=== PATIENT | female | born 1955 | race Caucasian/White ===

== ENCOUNTER → 2018-06-13 | Outpatient (CLI) | payer OTHER ==
--- NOTE | 2018-06-18 08:12 | MM ---
Reason for exam: additional evaluation requested from prior study. Last mammogram was performed 2 years and 1 month ago. History: Patient is postmenopausal. Physical Findings: Nurse did not find any significant physical abnormalities on exam. MG Diagnostic Mammo w CAD LUAN Bilateral CC and MLO view(s) were taken. Prior study comparison: May 11, 2016, mammogram, performed at [facility]. May 01, 2016, mammogram, performed at [facility]. November 23, 2014, mammogram, performed at [facility]. The breast tissue is heterogeneously dense. This may lower the sensitivity of mammography. No significant new findings when compared with previous films. These results were verbally communicated with the patient and result sheet given to the patient on 06/17/18. ASSESSMENT: Benign, BI-RAD 2 RECOMMENDATION: Routine screening mammogram of both breasts in 1 year.
== END ==
LOC: RADMAMWWP 07:25
PROVIDERS: ATTEND Internal Medicine
DX: R92.8 Other abnormal and inconclusive findings on diagnostic imaging of breast (principal)
CPT/HCPCS: 77066

== ENCOUNTER → 2020-02-04 | Outpatient (CLI) | payer OTHER ==
--- NOTE | 2020-02-05 09:09 | MM ---
Reason for exam: screening (asymptomatic). Last mammogram was performed 1 year and 8 months ago. History: Patient is postmenopausal. Took hormonal contraceptives for 7 years beginning at age 17. Physical Findings: A clinical breast exam by your physician is recommended on an annual basis and results should be correlated with mammographic findings. MG Screening Mammo w CAD Bilateral CC and MLO view(s) were taken. Prior study comparison: June 13, 2018, bilateral MG diagnostic mammo w CAD LUAN. May 11, 2016, mammogram, performed at [facility]. The breast tissue is heterogeneously dense. This may lower the sensitivity of mammography. Focal asymmetry inner upper posterior third position right breast. ASSESSMENT: Incomplete: need additional imaging evaluation, BI-RAD 0 RECOMMENDATION: Special view mammogram of the right breast. If lesion persists on supplemental views, image directed ultrasound is recommended. [facility] will attempt to contact patient to return for supplemental views and ultrasound if indicated.
== END | disposition home or self-care (01) ==
LOC: RADMAMWWP 07:43
PROVIDERS: ATTEND Internal Medicine
DX: Z12.31 Encounter for screening mammogram for malignant neoplasm of breast (principal)
CPT/HCPCS: 77067

== ENCOUNTER → 2021-08-28 | Outpatient (CLI) | payer OTHER ==
--- NOTE | 2021-08-29 13:49 | BD ---
EXAMINATION TYPE: Axial Bone Density DATE OF EXAM: 08/28/2021 COMPARISON: NONE CLINICAL HISTORY: Z13.820 encounter for osteoporosis screening, Z78 Height: 5 FT 3 1/2 IN Weight: 204 FRAX RISK QUESTIONS: Alcohol (3 or more units per day): NO Family History (Parent hip fracture): NO Glucocorticoids (More than 3mos): NO (Ex: prednisone, prednisolone, methylprednisolone, dexamethasone, and hydrocortisone). History of Fracture in Adulthood: NO Secondary Osteoporosis: 1. Type 1 Diabetes: NO 2. Hyperthyroidism: NO 3. Menopause before 45: NO 4. Malnutrition: NO 5. Chronic liver disease: NO Rheumatoid Arthritis: NO Current Tobacco Use: NO RISK FACTORS HISTORY OF: Surgery to Spine/Hip(right/left)/Wrist (right/left): NO Family History of Osteoporosis: NO Active: YES Diet low in dairy products/other sources of calcium: NO Postmenopausal woman: YES Take estrogen and/or progesterone medications: NO Lost more than 2 inches in height since high school: YES Frequent falls: NO Poor Health: GOOD Hyperparathyroidism: NO Adrenal Insufficiency: NO MEDICATIONS: Additional Medications: SIMVASTATIN Additional History: EXAM MEASUREMENTS: Bone mineral densitometry was performed using the ESTmob System. Bone mineral density as measured about the Lumbar spine is: ----- L1-L4(G/cm2): 1.227 T Score Values are as follows: ----- L2: -0.6 ----- L3: 0.3 ----- L4: 1.0 ----- L1-L4: 0.4 BASELINE Bone mineral density about the R hip (g/cm2): 1.019 Bone mineral density about the L hip (g/cm2): 0.981 T Score values are as follows: -----R Neck: -0.1 -----L Neck: -0.4 -----R Total: 0.4 -----L Total: 0.7 BASELINE IMPRESSION: Normal (Values between +1 and -1 indicate normal bone mass). Consider repeating this study in 5 year s or sooner if there is some new clinical indication. NOTE: T-SCORE=SD OF THE YOUNG ADULT MEAN.
== END | disposition home or self-care (01) ==
LOC: RADBDWWP 07:12
PROVIDERS: ATTEND Internal Medicine
DX: Z78.0 Asymptomatic menopausal state (principal)
CPT/HCPCS: 77080

== ENCOUNTER → 2022-02-05 | Outpatient (CLI) | payer MEDICARE ==
--- NOTE | 2022-02-06 11:32 | MM ---
Reason for Exam: Screening (asymptomatic). Last mammogram was performed 2 year(s) and 0 month(s) ago. Patient History: Menarche at age 16. First Full-Term at age 23. Postmenopausal. Hormonal Contraceptives for 7 years from age 17 until age 23. Risk Values: Vilma 5 year model risk: 1.4%. NCI Lifetime model risk: 5.1%. Prior Study Comparison: 06/13/2018 Bilateral Diagnostic Mammogram, [facility]. 02/04/2020 Bilateral Screening Mammogram, [facility]. 02/16/2020 Right Diagnostic Mammogram, [facility]. Tissue Density: The breast tissue is heterogeneously dense. This may lower the sensitivity of mammography. Findings: Analyzed By CAD. There is no suspicious group of microcalcifications or new suspicious mass in either breast. Benign-appearing calcifications noted. Overall Assessment: Benign, BI-RAD 2 Management: Screening Mammogram of both breasts in 1 year. A clinical breast exam by your physician is recommended on an annual basis and results should be correlated with mammographic findings. Electronically signed and approved by: Will Cortes M.D. Radiologis
== END | disposition home or self-care (01) ==
LOC: RADMAMWWP 09:30
PROVIDERS: ATTEND Internal Medicine
DX: Z12.31 Encounter for screening mammogram for malignant neoplasm of breast (principal); Z78.0 Asymptomatic menopausal state
CPT/HCPCS: 77063; 77067

== ENCOUNTER → 2024-05-19 | Outpatient (CLI) | payer MEDICARE ==
--- NOTE | 2024-05-25 12:11 | MM ---
Reason for Exam: Screening (asymptomatic). Last mammogram was performed 1 year(s) and 3 month(s) ago. Patient History: Menarche at age 16. First Full-Term at age 23. Postmenopausal. Hormonal Contraceptives for 7 years from age 17 until age 23. Risk Values: Vilma 5 year model risk: 1.4%. NCI Lifetime model risk: 4.8%. Prior Study Comparison: 02/16/2020 Right Diagnostic Mammogram, [facility]. 02/05/2022 Bilateral MG 3D screening mammo w/cad, [facility]. 02/07/2023 Bilateral MG 3D screening mammo w/cad, [facility]. Tissue Density: There are scattered areas of fibroglandular density. Findings: Analyzed By CAD. Right breast: There is no suspicious group of microcalcifications or new suspicious mass. Benign-appearing calcifications right breast. Left breast: There is no suspicious group of microcalcifications or new suspicious mass. Benign-appearing calcifications left breast. Overall Assessment: Negative, BI-RAD 1 Management: Screening Mammogram of both breasts in [address] [facility] will attempt to contact patient to return for supplemental views and ultrasound if indicated. Patient should continue monthly self-breast exams. A clinical breast exam by your physician is recommended on an annual basis. This exam should not preclude additional follow-up of suspicious palpable abnormalities. Note on Vilma scores and lifetime risk: 1. A Vilma score greater than 3% is considered moderate risk. If this is the case, consider specialist referral to assess eligibility for a risk reducing agent. 2. If overall lifetime risk for the development of breast cancer is 20% or higher, the patient may qualify for future screening with alternating mammogram and breast MRI. [facility], , 05/19/2024 12:04 PM. Electronically signed and approved by: Gorge Hatch DO
== END | disposition home or self-care (01) ==
LOC: RADMAMWWP 11:45
PROVIDERS: ATTEND Internal Medicine
DX: Z12.31 Encounter for screening mammogram for malignant neoplasm of breast (principal); Z78.0 Asymptomatic menopausal state; R92.323 Mammographic fibroglandular density, bilateral breasts
CPT/HCPCS: 77063; 77067